=== PATIENT | male | born 1970 | race Two or more races ===

== ENCOUNTER 2022-06-20 11:45 | Emergency (ER) | payer SELFPAY ==
[~2022-06-20] VITALS: Ht 170.2 cm; Wt 80.0 kg
[2022-06-20 12:31] VITALS: BP 125/86
[2022-06-20] MEDS ORDERED: methylPREDNISolone SOD SUCC 125 MG/2 ML VL IM ONE (12:45)
[2022-06-20] MEDS ORDERED: CLINDAMYCIN 900MG IV 50 ML IV ONE (12:45)
[2022-06-20] MEDS ORDERED: SODIUM CHLORIDE 0.9% 1,000 ML IV ONE (12:45)
[2022-06-20] MEDS ORDERED: IBUP800T27 PO (13:12)
[2022-06-20] MEDS ORDERED: CLIN300C8 PO (13:12)
[2022-06-20] MEDS ORDERED: PRED20TA2 PO (13:12)
[2022-06-20] MEDS ORDERED: KETOROLAC TROMETH 30 MG/ML 1ML VIAL IV ONE (13:15)
[2022-06-20 13:18] LABS: Basophils # (auto) 0 10 ^3/uL (0-0.2); Basophils % (auto) 0.3 % (0.0-2.0); Eosinophils # (auto) 0 10 ^3/uL (0-0.8); Hematocrit 46.9 % (41.0-53.0); Hemoglobin 15.7 g/dL (13.5-17.5); Lymphocytes # (auto) 0.9 10 ^3/uL (0.4-5.4); Lymphocytes % (auto) 5.6 % (10.0-50.0); Mean Corpuscular Hemoglobin 27.2 pg (28.0-32.0); Mean Corpuscular Hgb Conc. 33.4 g/dL (32.0-36.0); Mean Corpuscular Volume 81.4 fL (80.0-100.0); Monocytes % (auto) 6.7 % (0.0-12.0); Neutrophils # (auto) 13.7 10 ^3/uL (1.6-8.6); Neutrophils % (auto) 87.4 % (37.0-80.0); Red Blood Cells 5.76 10^6/uL (4.5-5.90); Red Cell Distribution Width 12.9 % (11.8-14.3); White Blood Cell 15.7 10^3/uL (4.4-10.8)
[2022-06-20 13:31] LABS: Albumin 3.7 g/dL (3.4-5.0); Calcium 8.8 mg/dL (8.5-10.1); Potassium 3.6 mmol/L (3.5-5.1)
[2022-06-20 13:33] LABS: BUN/Creatinine Ratio 26.7
[2022-06-20 13:35] LABS: Bilirubin, Total 1.8 mg/dL (0.2-1.0); Total Protein 8.8 g/dL (6.4-8.2)
== END 2022-06-20 14:11 | disposition home or self-care (01) ==
LOC: ER 11:45
DX: J36 Peritonsillar abscess (principal)
CPT/HCPCS: 36415; 80053; 85025; 96361; 96365; 96372; 96375; 99284; J1885; J2930; J3490; J7030